=== PATIENT | male | born 1945 | race Caucasian/White ===

== ENCOUNTER 2016-12-28 19:59 | Emergency (ER) | payer MEDICARE, OTHER ==
[~2016-12-28] VITALS: Ht 177.8 cm; Wt 80.7 kg
[~2016-12-28 19:59] MED LIST: ANTACID1 CT2 PO; AVPAK AZITHROM250 M1 PO; KEFLEX500 MG PO; LEVOFLOXACIN750 M2 PO; MEDROL DOSEPAK4 MG PO; MOTRIN800 MG PO; OMEPRAZOLE D/R20 MG PO; PREDNISONE10 MG PO; PREDNISONE20 M1 PO; PRESERVISION LU1 SGL PO; PROAIR HFA8.5 GM INH; ROBITUSSIN AC 110 ML PO; SPIRIVA18 MCG PO; TAMIFLU 75MG CA75 MG PO; TYLENOL WITH CO1 TA1 PO; VIBRAMYCIN100 MG PO; VICODIN 5/500 505 MG PO
[2016-12-28] MEDS ORDERED: CEPHALEXIN500 M1 PO (21:13)
== END 2016-12-28 21:05 | disposition home or self-care (01) ==
LOC: ED 19:59
DX: S69.92XA Unspecified injury of left wrist, hand and finger(s), initial encounter (principal); Z79.899 Other long term (current) drug therapy; X58.XXXA Exposure to other specified factors, initial encounter; Y93.9 Activity, unspecified; Y92.9 Unspecified place or not applicable; Y99.9 Unspecified external cause status

== ENCOUNTER 2017-06-21 16:14 | Emergency (ER) | payer OTHER ==
[~2017-06-21] VITALS: Ht 177.8 cm; Wt 81.6 kg
[~2017-06-21 16:14] MED LIST changes: +CEPHALEXIN500 M1 PO
[2017-06-21] MEDS ORDERED: KEFLEX500 M1 PO (16:29)
== END 2017-06-21 18:37 | disposition home or self-care (01) ==
LOC: ED 16:14
DX: S60.453A Superficial foreign body of left middle finger, initial encounter (principal); J44.9 Chronic obstructive pulmonary disease, unspecified; K21.9 Gastro-esophageal reflux disease without esophagitis; I44.7 Left bundle-branch block, unspecified; Z85.118 Personal history of other malignant neoplasm of bronchus and lung; Z90.89 Acquired absence of other organs; Z98.890 Other specified postprocedural states; Z87.891 Personal history of nicotine dependence; Z98.42 Cataract extraction status, left eye; Z98.41 Cataract extraction status, right eye; Z79.899 Other long term (current) drug therapy; W22.8XXA Striking against or struck by other objects, initial encounter; Y93.89 Activity, other specified; Y92.89 Other specified places as the place of occurrence of the external cause; Y99.9 Unspecified external cause status

== ENCOUNTER 2018-01-03 11:28 | Emergency (ER) | payer MEDICARE, OTHER ==
[~2018-01-03] VITALS: Ht 175.2 cm; Wt 86.2 kg
[~2018-01-03 11:28] MED LIST changes: +KEFLEX500 M1 PO
[2018-01-03] MEDS ORDERED: ASPIRIN CHEWABL81 MG PO (11:35)
[2018-01-03 12:33] LABS: BASO % 0.4 % (0.0-1.0); EOS # 0.1 10*3/uL (0.0-0.4); EOS % 1.2 % (1.0-4.0); HEMATOCRIT 38.9 % (42.0-52.0); HEMOGLOBIN 13.2 g/dl (14.0-18.0); LYMPH # 1.8 10*3/uL (1.3-4.4); LYMPH % 17.1 % (27.0-41.0); MEAN CELL VOLUME 95.8 fl (80.0-94.0); MEAN CORPUSCULAR HGB 32.5 pg (27.0-31.0); MEAN CORPUSCULAR HGB CONC 33.9 g/dl (33.0-37.0); MEAN PLATELET VOLUME 10.8 fl (9.6-12.3); MONO % 9.5 % (3.0-9.0); NEUT # 7.5 10*3/uL (2.3-7.9); NEUT % 71.3 % (47.0-73.0); PLATELET COUNT AUTOMATED 189 10*3/uL (130-400); RED BLOOD COUNT 4.06 10*6/uL (4.50-5.90); RED CELL DISTRI WIDTH 12.9 % (0-14.5); WHITE BLOOD COUNT 10.5 10*3/uL (4.8-10.8)
[2018-01-03 12:42] LABS: ACT PARTIAL THROMBO TIME 20.8 SECONDS (20.8-31.5)
[2018-01-03 12:52] LABS: ALBUMIN 3.5 gm/dl (3.1-4.5); ALKALINE PHOSPHATASE 56 U/L (45-117); BUN 14 mg/dl (7-24); CHLORIDE 100 mmol/L (98-107); CREATININE 0.82 mg/dL (0.70-1.30); LIPASE 120 U/L (73-393); SGOT/AST 15 IU/L (3-35); SGPT/ALT 22 U/L (12-78); SODIUM 135 mmol/L (136-145); TOTAL PROTEIN 6.7 gm/dL (6.4-8.2)
[2018-01-03 12:53] LABS: TROPONIN I < 0.015 ng/ml (<0.045)
[2018-01-03] MEDS ORDERED: DOXYCYCLINE100 M3 PO (14:07)
[2018-01-03] MEDS ORDERED: PROAIR HFA8.5 GM INH (14:07)
== END 2018-01-03 14:11 | disposition home or self-care (01) ==
LOC: ED 11:28
PROVIDERS: Nurse Practitioner Family
DX: J44.9 Chronic obstructive pulmonary disease, unspecified (principal); J20.9 Acute bronchitis, unspecified; F17.200 Nicotine dependence, unspecified, uncomplicated; K21.9 Gastro-esophageal reflux disease without esophagitis; Z90.89 Acquired absence of other organs; Z98.890 Other specified postprocedural states; Z85.118 Personal history of other malignant neoplasm of bronchus and lung; Z79.82 Long term (current) use of aspirin; Z79.899 Other long term (current) drug therapy

== ENCOUNTER 2018-10-19 15:19 | Emergency (ER) | payer OTHER ==
[~2018-10-19] VITALS: Ht 175.2 cm; Wt 83.9 kg
[~2018-10-19 15:19] MED LIST changes: +ASPIRIN CHEWABL81 MG PO; +DOXYCYCLINE100 M3 PO
[2018-10-19] MEDS ORDERED: CEPHALEXIN500 M1 PO (15:51)
== END 2018-10-19 17:50 | disposition home or self-care (01) ==
LOC: ED 15:19
DX: S51.012A Laceration without foreign body of left elbow, initial encounter (principal); Z87.891 Personal history of nicotine dependence; Z79.899 Other long term (current) drug therapy; Z79.82 Long term (current) use of aspirin; W00.0XXA Fall on same level due to ice and snow, initial encounter; Y93.89 Activity, other specified; Y92.89 Other specified places as the place of occurrence of the external cause; Y99.8 Other external cause status

== ENCOUNTER 2020-04-21 18:09 | Emergency (ER) | payer OTHER ==
[~2020-04-21] VITALS: Ht 175.2 cm; Wt 86.2 kg
[2020-04-21 18:58] LABS: BASO # 0.1 10*3/uL (0.0-0.1); BASO % 0.6 % (0.0-1.0); EOS # 0.1 10*3/uL (0.0-0.4); EOS % 1.7 % (1.0-4.0); HEMATOCRIT 34.6 % (42.0-52.0); LYMPH # 1.7 10*3/uL (1.3-4.4); LYMPH % 20.5 % (27.0-41.0); MEAN CELL VOLUME 95.3 fl (80.0-94.0); MEAN CORPUSCULAR HGB 32.5 pg (27.0-31.0); MEAN CORPUSCULAR HGB CONC 34.1 g/dl (33.0-37.0); MEAN PLATELET VOLUME 9.8 fl (9.6-12.3); MONO # 0.8 10*3/uL (0.1-1.0); MONO % 10.1 % (3.0-9.0); NEUT # 5.5 10*3/uL (2.3-7.9); NEUT % 66.6 % (47.0-73.0); PLATELET COUNT AUTOMATED 221 10*3/uL (130-400); RED BLOOD COUNT 3.63 10*6/uL (4.50-5.90); RED CELL DISTRI WIDTH 11.9 % (0-14.5); WHITE BLOOD COUNT 8.3 10*3/uL (4.8-10.8)
[2020-04-21 19:10] LABS: ACT PARTIAL THROMBO TIME 26.5 SECONDS (20.0-32.1); INTERNATIONAL NORM RATIO 0.9 (2.0-3.5)
[2020-04-21 19:20] LABS: ALBUMIN 3.4 gm/dl (3.1-4.5); ALKALINE PHOSPHATASE 61 U/L (45-117); BUN 18 mg/dl (7-24); CHLORIDE 96 mmol/L (98-107); CREATININE 1.05 mg/dL (0.70-1.30); POTASSIUM 4.6 mmol/L (3.5-5.1); SGOT/AST 18 IU/L (3-35); SGPT/ALT 24 U/L (12-78); SODIUM 127 mmol/L (136-145); TOTAL PROTEIN 6.6 gm/dL (6.4-8.2)
[2020-04-21] MEDS ORDERED: MOBIC7.5 MG PO (20:43)
== END 2020-04-21 20:58 | disposition home or self-care (01) ==
LOC: ED 18:09
PROVIDERS: Physician Assistant
DX: M17.12 Unilateral primary osteoarthritis, left knee (principal); Z79.899 Other long term (current) drug therapy; Z79.82 Long term (current) use of aspirin

== ENCOUNTER 2021-08-14 18:46 | Inpatient (IN) | payer OTHER ==
[~2021-08-14] VITALS: Ht 175.2 cm; Wt 88.9 kg
[~2021-08-14 18:46] MED LIST changes: +MOBIC7.5 MG PO
[2021-08-14 19:16] LABS: HEMATOCRIT 37.1 % (42.0-52.0); MEAN CELL VOLUME 98.1 fl (80.0-94.0); MEAN CORPUSCULAR HGB 33.1 pg (27.0-31.0); MEAN CORPUSCULAR HGB CONC 33.7 g/dl (33.0-37.0); MEAN PLATELET VOLUME 9.2 fl (9.6-12.3); PLATELET COUNT AUTOMATED 308 10*3/uL (130-400); RED BLOOD COUNT 3.78 10*6/uL (4.50-5.90); RED CELL DISTRI WIDTH 13.2 % (0-14.5); WHITE BLOOD COUNT 16.8 10*3/uL (4.8-10.8)
[2021-08-14 19:27] LABS: ACT PARTIAL THROMBO TIME 30.2 SECONDS (20.0-32.1); INTERNATIONAL NORM RATIO 1.1 (2.0-3.5)
[2021-08-14 19:31] LABS: ALKALINE PHOSPHATASE 96 U/L (45-117); BUN 17 mg/dl (7-24); CHLORIDE 96 mmol/L (98-107); CREATININE 0.94 mg/dL (0.70-1.30); POTASSIUM 4.6 mmol/L (3.5-5.1); SGOT/AST 24 IU/L (3-35); SGPT/ALT 43 U/L (12-78); SODIUM 132 mmol/L (136-145); TOTAL PROTEIN 7.5 gm/dL (6.4-8.2)
[2021-08-14 19:37] LABS: ATYPICAL LYMPHS 2 % (0-0); BURR CELLS FEW; PLATELET SUFFICIENCY NORMAL (NORMAL); TOTAL CELLS COUNTED 100 #CELLS
[2021-08-14 19:58] LABS: ALBUMIN 2.4 gm/dl (3.1-4.5)
[2021-08-14 20:47] VITALS: BP 128/62
[2021-08-14 22:46] VITALS: BP 119/63
[2021-08-15] VITALS (10 sets, daily range): BP systolic 121–141; BP diastolic 70–84
[2021-08-15] MEDS ORDERED: CARVEDILOL6.25 MG PO (03:30)
[2021-08-15] MEDS ORDERED: DIOVAN40 MG PO (03:30)
[2021-08-15] MEDS ORDERED: ALDACTONE25 M1 PO (03:30)
[2021-08-15 04:08] LABS: BASO % 0.3 % (0.0-1.0); EOS # 0.1 10*3/uL (0.0-0.4); EOS % 0.5 % (1.0-4.0); HEMATOCRIT 33.7 % (42.0-52.0); LYMPH # 1.5 10*3/uL (1.3-4.4); LYMPH % 12.1 % (27.0-41.0); MEAN CELL VOLUME 98.8 fl (80.0-94.0); MEAN CORPUSCULAR HGB 33.1 pg (27.0-31.0); MEAN CORPUSCULAR HGB CONC 33.5 g/dl (33.0-37.0); MEAN PLATELET VOLUME 9.5 fl (9.6-12.3); MONO # 1.2 10*3/uL (0.1-1.0); MONO % 9.9 % (3.0-9.0); NEUT # 9.3 10*3/uL (2.3-7.9); NEUT % 74.9 % (47.0-73.0); PLATELET COUNT AUTOMATED 292 10*3/uL (130-400); RED BLOOD COUNT 3.41 10*6/uL (4.50-5.90); RED CELL DISTRI WIDTH 13.2 % (0-14.5); WHITE BLOOD COUNT 12.4 10*3/uL (4.8-10.8)
[2021-08-15 04:24] LABS: BUN 14 mg/dl (7-24); CHLORIDE 98 mmol/L (98-107); SODIUM 132 mmol/L (136-145)
[2021-08-15 04:26] LABS: CHOLESTEROL 79 mg/dL (<200); LDL CHOLESTEROL 29 mg/dL (9-159); TRIGLYCERIDES 59 mg/dl (<150)
[2021-08-15 09:04] LABS: VITAMIN D, 25-HYDROXY 27.4 ng/mL (30-100)
[2021-08-16 04:50] VITALS: BP 128/84
[2021-08-16 06:18] LABS: BASO % 0.3 % (0.0-1.0); EOS # 0.1 10*3/uL (0.0-0.4); EOS % 0.9 % (1.0-4.0); HEMATOCRIT 31.9 % (42.0-52.0); LYMPH # 1.2 10*3/uL (1.3-4.4); LYMPH % 11.3 % (27.0-41.0); MEAN CELL VOLUME 98.5 fl (80.0-94.0); MEAN CORPUSCULAR HGB 32.7 pg (27.0-31.0); MEAN CORPUSCULAR HGB CONC 33.2 g/dl (33.0-37.0); MEAN PLATELET VOLUME 9.4 fl (9.6-12.3); MONO # 0.9 10*3/uL (0.1-1.0); MONO % 8.6 % (3.0-9.0); NEUT # 8.4 10*3/uL (2.3-7.9); PLATELET COUNT AUTOMATED 301 10*3/uL (130-400); RED BLOOD COUNT 3.24 10*6/uL (4.50-5.90); RED CELL DISTRI WIDTH 13.2 % (0-14.5); WHITE BLOOD COUNT 10.9 10*3/uL (4.8-10.8)
[2021-08-16 06:56] LABS: ALBUMIN 1.8 gm/dl (3.1-4.5); ALKALINE PHOSPHATASE 80 U/L (45-117); BUN 11 mg/dl (7-24); CHLORIDE 97 mmol/L (98-107); SGOT/AST 51 IU/L (3-35); SGPT/ALT 63 U/L (12-78); SODIUM 133 mmol/L (136-145); TOTAL PROTEIN 6.4 gm/dL (6.4-8.2)
[2021-08-16 08:24] VITALS: BP 120/77
[2021-08-16 13:00] VITALS: BP 118/86
[2021-08-16 16:00] VITALS: BP 119/72
[2021-08-16 20:00] VITALS: BP 150/70
[2021-08-17] VITALS: BP 136/69
[2021-08-17 06:32] LABS: BASO % 0.4 % (0.0-1.0); EOS # 0.1 10*3/uL (0.0-0.4); EOS % 1.2 % (1.0-4.0); HEMATOCRIT 31.6 % (42.0-52.0); LYMPH # 1.2 10*3/uL (1.3-4.4); LYMPH % 10.2 % (27.0-41.0); MEAN CORPUSCULAR HGB 33.2 pg (27.0-31.0); MEAN CORPUSCULAR HGB CONC 33.2 g/dl (33.0-37.0); MEAN PLATELET VOLUME 9.3 fl (9.6-12.3); MONO # 0.9 10*3/uL (0.1-1.0); NEUT # 8.9 10*3/uL (2.3-7.9); NEUT % 78.3 % (47.0-73.0); PLATELET COUNT AUTOMATED 317 10*3/uL (130-400); RED BLOOD COUNT 3.16 10*6/uL (4.50-5.90); WHITE BLOOD COUNT 11.3 10*3/uL (4.8-10.8)
[2021-08-17 06:52] LABS: ALBUMIN 1.8 gm/dl (3.1-4.5); BUN 10 mg/dl (7-24); CHLORIDE 97 mmol/L (98-107); POTASSIUM 4.2 mmol/L (3.5-5.1); SODIUM 132 mmol/L (136-145)
[2021-08-17 06:55] LABS: ALKALINE PHOSPHATASE 76 U/L (45-117); CREATININE 0.53 mg/dL (0.70-1.30); SGOT/AST 60 IU/L (3-35); SGPT/ALT 97 U/L (12-78); TOTAL PROTEIN 6.3 gm/dL (6.4-8.2)
[2021-08-17 08:00] VITALS: BP 105/61
[2021-08-17 12:00] VITALS: BP 112/64
[2021-08-17 16:00] VITALS: BP 98/62
[2021-08-17 20:00] VITALS: BP 131/75
[2021-08-18] VITALS: BP 133/60
[2021-08-18 06:08] LABS: BASO % 0.3 % (0.0-1.0); EOS # 0.1 10*3/uL (0.0-0.4); HEMATOCRIT 32.8 % (42.0-52.0); LYMPH # 1.3 10*3/uL (1.3-4.4); LYMPH % 11.1 % (27.0-41.0); MEAN CELL VOLUME 98.8 fl (80.0-94.0); MEAN CORPUSCULAR HGB 32.5 pg (27.0-31.0); MEAN CORPUSCULAR HGB CONC 32.9 g/dl (33.0-37.0); MEAN PLATELET VOLUME 9.1 fl (9.6-12.3); MONO # 0.9 10*3/uL (0.1-1.0); MONO % 7.5 % (3.0-9.0); NEUT # 9.2 10*3/uL (2.3-7.9); NEUT % 77.6 % (47.0-73.0); PLATELET COUNT AUTOMATED 363 10*3/uL (130-400); RED BLOOD COUNT 3.32 10*6/uL (4.50-5.90); WHITE BLOOD COUNT 11.9 10*3/uL (4.8-10.8)
[2021-08-18 06:24] LABS: ALBUMIN 1.9 gm/dl (3.1-4.5); BUN 10 mg/dl (7-24); CHLORIDE 95 mmol/L (98-107); CREATININE 0.54 mg/dL (0.70-1.30); POTASSIUM 4.3 mmol/L (3.5-5.1); SGOT/AST 38 IU/L (3-35); SGPT/ALT 91 U/L (12-78); SODIUM 131 mmol/L (136-145); TOTAL PROTEIN 6.7 gm/dL (6.4-8.2)
[2021-08-18 06:25] LABS: ALKALINE PHOSPHATASE 75 U/L (45-117)
[2021-08-18 08:00] VITALS: BP 105/71
[2021-08-18 12:00] VITALS: BP 155/72
[2021-08-18 16:00] VITALS: BP 125/79
[2021-08-18 20:00] VITALS: BP 130/78
[2021-08-19] VITALS: BP 121/72
[2021-08-19 06:33] LABS: HEMATOCRIT 32.4 % (42.0-52.0); MEAN CELL VOLUME 99.4 fl (80.0-94.0); MEAN CORPUSCULAR HGB 32.5 pg (27.0-31.0); MEAN CORPUSCULAR HGB CONC 32.7 g/dl (33.0-37.0); MEAN PLATELET VOLUME 9.1 fl (9.6-12.3); PLATELET COUNT AUTOMATED 385 10*3/uL (130-400); RED BLOOD COUNT 3.26 10*6/uL (4.50-5.90); RED CELL DISTRI WIDTH 13.1 % (0-14.5); WHITE BLOOD COUNT 12.1 10*3/uL (4.8-10.8)
[2021-08-19 06:47] LABS: ALBUMIN 1.9 gm/dl (3.1-4.5); ALKALINE PHOSPHATASE 66 U/L (45-117); BUN 9 mg/dl (7-24); CHLORIDE 96 mmol/L (98-107); CREATININE 0.64 mg/dL (0.70-1.30); POTASSIUM 4.2 mmol/L (3.5-5.1); SGOT/AST 26 IU/L (3-35); SGPT/ALT 78 U/L (12-78); SODIUM 133 mmol/L (136-145); TOTAL PROTEIN 6.4 gm/dL (6.4-8.2)
[2021-08-19 08:00] VITALS: BP 128/68
[2021-08-19 08:00] LABS: BURR CELLS FEW; PLATELET SUFFICIENCY NORMAL (NORMAL); SCHISTOCYTES FEW; TOTAL CELLS COUNTED 100 #CELLS
[2021-08-19 12:00] VITALS: BP 130/28; BP 130/58
[2021-08-19] MEDS ORDERED: OMNICEF300 MG PO (13:16)
[2021-08-19] MEDS ORDERED: ZITHROMAX250 MG PO (13:16)
== END 2021-08-19 20:48 | disposition home or self-care (01) | DRG 871 ==
LOC: ED 18:46 → EDHOLD 21:14 → 4E 08-16 15:55
PROVIDERS: Emergency Medicine; Hospitalist; Internal Medicine; ADMIT Internal Medicine; ATTEND Internal Medicine
DX: A41.9 Sepsis, unspecified organism (principal); J18.9 Pneumonia, unspecified organism; E43 Unspecified severe protein-calorie malnutrition; J96.01 Acute respiratory failure with hypoxia; E87.1 Hypo-osmolality and hyponatremia; J44.0 Chronic obstructive pulmonary disease with (acute) lower respiratory infection; I44.7 Left bundle-branch block, unspecified; D53.9 Nutritional anemia, unspecified; R74.01 Elevation of levels of liver transaminase levels; E87.8 Other disorders of electrolyte and fluid balance, not elsewhere classified; E55.9 Vitamin D deficiency, unspecified; K21.9 Gastro-esophageal reflux disease without esophagitis; Z95.810 Presence of automatic (implantable) cardiac defibrillator; Z85.118 Personal history of other malignant neoplasm of bronchus and lung; Z98.42 Cataract extraction status, left eye; Z98.41 Cataract extraction status, right eye; Z80.1 Family history of malignant neoplasm of trachea, bronchus and lung; Z82.5 Family history of asthma and other chronic lower respiratory diseases; Z79.82 Long term (current) use of aspirin; Z79.51 Long term (current) use of inhaled steroids

== ENCOUNTER 2022-09-23 16:41 | Emergency (ER) | payer OTHER ==
[~2022-09-23] VITALS: Ht 175.2 cm; Wt 80.3 kg
[~2022-09-23 16:41] MED LIST changes: +ALDACTONE25 M1 PO; +CARVEDILOL6.25 MG PO; +DIOVAN40 MG PO; +OMNICEF300 MG PO; +ZITHROMAX250 MG PO
[2022-09-23 17:20] LABS: BASO # 0.1 10*3/uL (0.0-0.1); BASO % 0.6 % (0.0-1.0); EOS # 0.8 10*3/uL (0.0-0.4); HEMATOCRIT 39.1 % (42.0-52.0); LYMPH # 1.5 10*3/uL (1.3-4.4); LYMPH % 13.5 % (27.0-41.0); MEAN CELL VOLUME 98.5 fl (80.0-94.0); MEAN CORPUSCULAR HGB 32.5 pg (27.0-31.0); MEAN PLATELET VOLUME 9.6 fl (9.6-12.3); MONO # 0.9 10*3/uL (0.1-1.0); MONO % 7.9 % (3.0-9.0); NEUT # 8.1 10*3/uL (2.3-7.9); NEUT % 70.7 % (47.0-73.0); PLATELET COUNT AUTOMATED 191 10*3/uL (130-400); RED BLOOD COUNT 3.97 10*6/uL (4.50-5.90); RED CELL DISTRI WIDTH 12.8 % (0-14.5); WHITE BLOOD COUNT 11.4 10*3/uL (4.8-10.8)
[2022-09-23 17:36] LABS: ALKALINE PHOSPHATASE 72 U/L (46-116); BUN 11 mg/dl (9-23); CHLORIDE 97 mmol/L (98-107); POTASSIUM 4.3 mmol/L (3.4-5.1); SGPT/ALT 17 U/L (10-49); TOTAL PROTEIN 7.3 gm/dL (6.0-8.0)
[2022-09-23] MEDS ORDERED: VIBRA-TAB100 MG PO (17:48)
[2022-09-23] MEDS ORDERED: PREDNISONE10 MG PO (17:48)
[2022-09-23] MEDS ORDERED: PROVENTIL HFA6.7 GM PO (17:48)
== END 2022-09-23 19:43 | disposition home or self-care (01) ==
LOC: ED 16:41
PROVIDERS: Student in an Organized Health Care Education/Training Program
DX: J44.1 Chronic obstructive pulmonary disease with (acute) exacerbation (principal); J18.9 Pneumonia, unspecified organism; Z79.899 Other long term (current) drug therapy; Z79.82 Long term (current) use of aspirin; Z98.890 Other specified postprocedural states; Z87.891 Personal history of nicotine dependence

== ENCOUNTER 2023-05-21 15:45 | Inpatient (IN) | payer OTHER ==
[~2023-05-21] VITALS: Ht 172.7 cm; Wt 81.6 kg
[~2023-05-21 15:45] MED LIST changes: -CARVEDILOL6.25 MG PO; +COREG12.5 M1 PO; -DIOVAN40 MG PO; +DIOVAN80 M1 PO; +DULCOLAX STOOL100 M1 PO; +LIPITOR40 MG PO; -OMEPRAZOLE D/R20 MG PO; +OMEPRAZOLE40 MG PO; +PREDNISONE50 MG PO; +PROVENTIL HFA6.7 GM PO; +SPIRIVA -- 3018 MCG INH; +VIBRA-TAB100 MG PO
[2023-05-21 16:14] VITALS: BP 108/57
[2023-05-21 16:21] LABS: BASO # 0.1 10*3/uL (0.0-0.1); BASO % 0.3 % (0.0-1.0); EOS # 0.1 10*3/uL (0.0-0.4); EOS % 0.4 % (1.0-4.0); HEMATOCRIT 38.4 % (42.0-52.0); LYMPH # 1.1 10*3/uL (1.3-4.4); MEAN CELL VOLUME 99.2 fl (80.0-94.0); MEAN CORPUSCULAR HGB 32.6 pg (27.0-31.0); MEAN CORPUSCULAR HGB CONC 32.8 g/dl (33.0-37.0); MEAN PLATELET VOLUME 10.1 fl (9.6-12.3); MONO # 1.2 10*3/uL (0.1-1.0); MONO % 6.8 % (3.0-9.0); NEUT # 15.4 10*3/uL (2.3-7.9); NEUT % 85.9 % (47.0-73.0); PLATELET COUNT AUTOMATED 193 10*3/uL (130-400); RED BLOOD COUNT 3.87 10*6/uL (4.50-5.90); RED CELL DISTRI WIDTH 12.8 % (0-14.5); WHITE BLOOD COUNT 17.9 10*3/uL (4.8-10.8)
[2023-05-21 16:32] LABS: ACT PARTIAL THROMBO TIME 26.9 SECONDS (20.0-32.1)
[2023-05-21 16:45] LABS: ALKALINE PHOSPHATASE 66 U/L (46-116); BUN 16 mg/dl (9-23); CHLORIDE 100 mmol/L (98-107); LIPASE 29 U/L (12-53); POTASSIUM 4.2 mmol/L (3.4-5.1); SGPT/ALT 14 U/L (10-49); TOTAL PROTEIN 6.9 gm/dL (6.0-8.0)
[2023-05-21 17:34] VITALS: BP 106/62
[2023-05-21 18:22] VITALS: BP 100/57
[2023-05-21 20:37] VITALS: BP 90/48
[2023-05-21 23:28] VITALS: BP 121/61
[2023-05-22] VITALS (10 sets, daily range): BP systolic 103–121; BP diastolic 49–76
[2023-05-22 08:07] LABS: HEMATOCRIT 36.5 % (42.0-52.0); MEAN CELL VOLUME 98.9 fl (80.0-94.0); MEAN CORPUSCULAR HGB 32.8 pg (27.0-31.0); MEAN CORPUSCULAR HGB CONC 33.2 g/dl (33.0-37.0); MEAN PLATELET VOLUME 10.6 fl (9.6-12.3); PLATELET COUNT AUTOMATED 187 10*3/uL (130-400); RED BLOOD COUNT 3.69 10*6/uL (4.50-5.90); RED CELL DISTRI WIDTH 12.7 % (0-14.5); WHITE BLOOD COUNT 11.9 10*3/uL (4.8-10.8)
[2023-05-22 08:12] LABS: MANUAL DIFF REFLEX YES
[2023-05-22 08:41] LABS: BUN 12 mg/dl (9-23); CHLORIDE 106 mmol/L (98-107); FREE T4 1.19 ng/dl (0.89-1.76)
[2023-05-22 08:50] LABS: TOTAL CELLS COUNTED 100 #CELLS
[2023-05-22 08:51] LABS: BURR CELLS MODERATE; PLATELET SUFFICIENCY NORMAL (NORMAL); POLYCHROMASIA SLIGHT
[2023-05-23 08:14] VITALS: BP 119/47
[2023-05-23 08:16] LABS: HEMATOCRIT 35.3 % (42.0-52.0); MEAN CELL VOLUME 100.3 fl (80.0-94.0); MEAN CORPUSCULAR HGB CONC 32.9 g/dl (33.0-37.0); MEAN PLATELET VOLUME 10.9 fl (9.6-12.3); PLATELET COUNT AUTOMATED 201 10*3/uL (130-400); RED BLOOD COUNT 3.52 10*6/uL (4.50-5.90); RED CELL DISTRI WIDTH 12.8 % (0-14.5); WHITE BLOOD COUNT 15.2 10*3/uL (4.8-10.8)
[2023-05-23 08:18] LABS: MANUAL DIFF REFLEX YES
[2023-05-23 08:42] LABS: ALKALINE PHOSPHATASE 57 U/L (46-116); BUN 14 mg/dl (9-23); CHLORIDE 104 mmol/L (98-107); POTASSIUM 4.3 mmol/L (3.4-5.1); SGPT/ALT 14 U/L (10-49); TOTAL PROTEIN 6.3 gm/dL (6.0-8.0)
[2023-05-23 09:27] LABS: BURR CELLS FEW; PLATELET SUFFICIENCY NORMAL (NORMAL); POLYCHROMASIA SLIGHT; TOTAL CELLS COUNTED 100 #CELLS
[2023-05-23] MEDS ORDERED: PREDNISONE10 MG PO (11:36)
[2023-05-23] MEDS ORDERED: AUGMENTIN 500500 M1 PO (11:36)
[2023-05-23] MEDS ORDERED: VITAMIN D350 MC2 PO (11:36)
[2023-05-23] MEDS ORDERED: ZITHROMAX250 MG PO (11:36)
== END 2023-05-23 11:30 | disposition home or self-care (01) | DRG 871 ==
LOC: ED 15:45 → EDHOLD 18:32
PROVIDERS: Emergency Medicine; Student in an Organized Health Care Education/Training Program; ADMIT Internal Medicine; ATTEND Internal Medicine
DX: A41.9 Sepsis, unspecified organism (principal); J18.9 Pneumonia, unspecified organism; N17.0 Acute kidney failure with tubular necrosis; K72.00 Acute and subacute hepatic failure without coma; J44.1 Chronic obstructive pulmonary disease with (acute) exacerbation; J44.0 Chronic obstructive pulmonary disease with (acute) lower respiratory infection; R65.20 Severe sepsis without septic shock; I10 Essential (primary) hypertension; E78.5 Hyperlipidemia, unspecified; K21.9 Gastro-esophageal reflux disease without esophagitis; E78.00 Pure hypercholesterolemia, unspecified; D72.829 Elevated white blood cell count, unspecified; D64.9 Anemia, unspecified; R73.9 Hyperglycemia, unspecified; E55.9 Vitamin D deficiency, unspecified; Z98.42 Cataract extraction status, left eye; Z98.41 Cataract extraction status, right eye; Z87.891 Personal history of nicotine dependence; Z80.1 Family history of malignant neoplasm of trachea, bronchus and lung; Z83.6 Family history of other diseases of the respiratory system; Z85.118 Personal history of other malignant neoplasm of bronchus and lung

== ENCOUNTER 2023-11-12 10:46 | Inpatient (IN) | payer OTHER ==
[~2023-11-12] VITALS: Ht 175.3 cm; Wt 80.7 kg
[~2023-11-12 10:46] MED LIST changes: +AUGMENTIN 500500 M1 PO; +VITAMIN D350 MC2 PO
[2023-11-12 10:55] VITALS: BP 126/66
[2023-11-12] MEDS ORDERED: Albuterol Sulf/Ipratropium 3 ML VIAL NEB ONE (11:15)
[2023-11-12 11:27] LABS: BASO # 0.1 10*3/uL (0.0-0.1); BASO % 0.5 % (0.0-1.0); EOS # 0.4 10*3/uL (0.0-0.4); EOS % 3.2 % (1.0-4.0); HEMATOCRIT 38.9 % (42.0-52.0); LYMPH # 1.5 10*3/uL (1.3-4.4); LYMPH % 11.1 % (27.0-41.0); MEAN CELL VOLUME 98.2 fl (80.0-94.0); MEAN CORPUSCULAR HGB 31.6 pg (27.0-31.0); MEAN CORPUSCULAR HGB CONC 32.1 g/dl (33.0-37.0); MEAN PLATELET VOLUME 9.8 fl (9.6-12.3); MONO # 0.9 10*3/uL (0.1-1.0); NEUT # 10.3 10*3/uL (2.3-7.9); NEUT % 77.7 % (47.0-73.0); PLATELET COUNT AUTOMATED 279 10*3/uL (130-400); RED BLOOD COUNT 3.96 10*6/uL (4.50-5.90); RED CELL DISTRI WIDTH 12.6 % (0-14.5); WHITE BLOOD COUNT 13.3 10*3/uL (4.8-10.8)
[2023-11-12 11:37] LABS: ACT PARTIAL THROMBO TIME 26.8 SECONDS (20.0-32.1)
[2023-11-12 11:48] LABS: ALKALINE PHOSPHATASE 62 U/L (46-116); BUN 10 mg/dl (9-23); CHLORIDE 99 mmol/L (98-107); LIPASE 31 U/L (12-53); POTASSIUM 3.9 mmol/L (3.4-5.1); SGPT/ALT 11 U/L (5-49); TOTAL PROTEIN 6.6 gm/dL (6.0-8.0)
[2023-11-12 12:00] VITALS: BP 112/65
[2023-11-12] MEDS ORDERED: methylPREDNISolone sod succ 125 MG VIAL IV ONE (12:35)
[2023-11-12] MEDS ORDERED: Ceftriaxone Sodium 1 GM/10 ML SYR IV ONE (12:40)
[2023-11-12] MEDS ORDERED: SODIUM CHLORIDE 0.9% 1,000 ML IV SCH (12:40)
[2023-11-12] MEDS ORDERED: AZITHROMYCIN 250 ML IV ONE (12:40)
[2023-11-12 13:30] VITALS: BP 112/65
[2023-11-12 14:26] VITALS: BP 132/98
[2023-11-12] MEDS ORDERED: FUROSEMIDE 40 MG/4 ML VIAL IV ONE (14:35)
[2023-11-12] MEDS ORDERED: LORazepam 0.5 MG TAB PO ONE (14:50)
[2023-11-12] MEDS ORDERED: Acetaminophen/Hydrocodone 5 MG/325 MG TABLET PO PRN (15:55)
[2023-11-12] MEDS ORDERED: BISACODYL 5 MG TAB PO PRN (15:55)
[2023-11-12] MEDS ORDERED: Ondansetron Hydrochloride 4 MG/2 ML VIAL IV PRN (15:55)
[2023-11-12] MEDS ORDERED: ACETAMINOPHEN 325 MG TAB PO PRN (15:55)
[2023-11-12] MEDS ORDERED: ACETAMINOPHEN 650 MG SUPP R PRN (15:55)
[2023-11-12] MEDS ORDERED: BISACODYL 10 MG SUPP R PRN (15:55)
[2023-11-12] MEDS ORDERED: Magnesium Hydroxide 30 ML UDC PO PRN (15:55)
[2023-11-12] MEDS ORDERED: Albuterol Sulf/Ipratropium 3 ML VIAL NEB PRN (16:05)
[2023-11-12] MEDS ORDERED: Phosphorus/Potassium 1.45 GM PACKET PO SCH (17:00)
[2023-11-12] MEDS ORDERED: LEVOFLOXACIN 150 ML IV SCH (18:00)
[2023-11-12] MEDS ORDERED: FUROSEMIDE 20 MG/2 ML VIAL IV SCH (18:00)
[2023-11-12] MEDS ORDERED: FUROSEMIDE 40 MG/4 ML VIAL IV SCH (18:00)
[2023-11-12 19:29] VITALS: BP 119/61
[2023-11-12 20:00] VITALS: BP 109/50
[2023-11-12] MEDS ORDERED: methylPREDNISolone sod succ 40 MG VIAL IV SCH (22:00)
[2023-11-12] MEDS ORDERED: TEMAZEPAM 15 MG CAP PO ONE (22:30)
[2023-11-13 05:24] VITALS: BP 108/58
[2023-11-13 05:40] LABS: ALKALINE PHOSPHATASE 58 U/L (46-116); BUN 14 mg/dl (9-23); CHLORIDE 99 mmol/L (98-107); CHOLESTEROL 104 mg/dL (<200); LDL CHOLESTEROL 43 mg/dL (9-159); POTASSIUM 4.3 mmol/L (3.4-5.1); SGPT/ALT 12 U/L (5-49); TOTAL PROTEIN 6.5 gm/dL (6.0-8.0); TRIGLYCERIDES 55 mg/dl (<150)
[2023-11-13 05:57] LABS: BASO % 0.2 % (0.0-1.0); HEMATOCRIT 36.9 % (42.0-52.0); LYMPH # 0.8 10*3/uL (1.3-4.4); LYMPH % 7.7 % (27.0-41.0); MEAN CELL VOLUME 98.7 fl (80.0-94.0); MEAN CORPUSCULAR HGB 31.6 pg (27.0-31.0); MONO # 0.2 10*3/uL (0.1-1.0); MONO % 1.5 % (3.0-9.0); NEUT # 9.6 10*3/uL (2.3-7.9); PLATELET COUNT AUTOMATED 272 10*3/uL (130-400); RED BLOOD COUNT 3.74 10*6/uL (4.50-5.90); RED CELL DISTRI WIDTH 12.5 % (0-14.5); WHITE BLOOD COUNT 10.7 10*3/uL (4.8-10.8)
[2023-11-13 06:38] LABS: ACT PARTIAL THROMBO TIME 28.8 SECONDS (20.0-32.1)
[2023-11-13 06:44] LABS: VITAMIN D, 25-HYDROXY 25.7 ng/mL (30-100)
[2023-11-13 09:34] VITALS: BP 118/62
[2023-11-13] MEDS ORDERED: Enoxaparin Sodium 40 MG/0.4 ML SYR SC SCH (10:00)
[2023-11-13 11:23] VITALS: BP 135/70
[2023-11-13 16:00] VITALS: BP 122/67
[2023-11-13] MEDS ORDERED: TEMAZEPAM 15 MG CAP PO PRN (18:55)
[2023-11-13 20:00] VITALS: BP 149/80
[2023-11-14] VITALS: BP 116/49
[2023-11-14 06:05] LABS: HEMATOCRIT 36.2 % (42.0-52.0); MEAN CELL VOLUME 97.1 fl (80.0-94.0); MEAN CORPUSCULAR HGB 31.4 pg (27.0-31.0); MEAN CORPUSCULAR HGB CONC 32.3 g/dl (33.0-37.0); MEAN PLATELET VOLUME 10.2 fl (9.6-12.3); PLATELET COUNT AUTOMATED 340 10*3/uL (130-400); RED BLOOD COUNT 3.73 10*6/uL (4.50-5.90); RED CELL DISTRI WIDTH 12.5 % (0-14.5); WHITE BLOOD COUNT 18.5 10*3/uL (4.8-10.8)
[2023-11-14 06:13] LABS: MANUAL DIFF REFLEX YES
[2023-11-14 06:19] LABS: BUN 16 mg/dl (9-23); CHLORIDE 96 mmol/L (98-107); POTASSIUM 4.3 mmol/L (3.4-5.1)
[2023-11-14 07:00] LABS: PLATELET SUFFICIENCY NORMAL (NORMAL); TOTAL CELLS COUNTED 100 #CELLS
[2023-11-14 07:01] LABS: BURR CELLS FEW
[2023-11-14 08:00] VITALS: BP 117/53
[2023-11-14] MEDS ORDERED: Cholecalciferol 2,000 UNIT TABLET (50 MCG) PO SCH (10:00)
[2023-11-14 12:00] VITALS: BP 151/70
[2023-11-14] MEDS ORDERED: hydrOXYzine pamoate 25 MG CAP PO ONE (12:30)
[2023-11-14] MEDS ORDERED: hydrOXYzine pamoate 25 MG CAP PO PRN (12:30)
[2023-11-14 16:00] VITALS: BP 148/86
[2023-11-14 20:00] VITALS: BP 137/89
[2023-11-15] VITALS: BP 118/72
[2023-11-15] MEDS ORDERED: Metoprolol Tartrate 25 MG TAB PO ONE (00:55)
[2023-11-15 06:31] LABS: BASO % 0.1 % (0.0-1.0); EOS % 0.1 % (1.0-4.0); HEMATOCRIT 36.6 % (42.0-52.0); LYMPH # 1.8 10*3/uL (1.3-4.4); LYMPH % 12.8 % (27.0-41.0); MEAN CELL VOLUME 96.6 fl (80.0-94.0); MEAN CORPUSCULAR HGB 31.4 pg (27.0-31.0); MEAN CORPUSCULAR HGB CONC 32.5 g/dl (33.0-37.0); MEAN PLATELET VOLUME 9.7 fl (9.6-12.3); MONO % 6.9 % (3.0-9.0); NEUT # 10.9 10*3/uL (2.3-7.9); NEUT % 79.4 % (47.0-73.0); PLATELET COUNT AUTOMATED 321 10*3/uL (130-400); RED BLOOD COUNT 3.79 10*6/uL (4.50-5.90); RED CELL DISTRI WIDTH 12.5 % (0-14.5); WHITE BLOOD COUNT 13.7 10*3/uL (4.8-10.8)
[2023-11-15 07:09] LABS: BUN 16 mg/dl (9-23); CHLORIDE 97 mmol/L (98-107); POTASSIUM 4.3 mmol/L (3.4-5.1)
[2023-11-15 08:00] VITALS: BP 121/66
[2023-11-15] MEDS ORDERED: FOLIC ACID 0.4 MG TAB PO SCH (10:00)
[2023-11-15 12:00] VITALS: BP 135/60
[2023-11-15 16:00] VITALS: BP 131/52
[2023-11-15] MEDS ORDERED: TUBERCULIN INTRADERM ONE (18:20)
[2023-11-15 20:00] VITALS: BP 118/68
[2023-11-16] VITALS: BP 101/70
[2023-11-16] MEDS ORDERED: OMEPRAZOLE 20 MG CAP PO SCH (06:00)
[2023-11-16 06:38] LABS: BASO % 0.1 % (0.0-1.0); EOS # 0.1 10*3/uL (0.0-0.4); EOS % 1.1 % (1.0-4.0); HEMATOCRIT 37.6 % (42.0-52.0); LYMPH # 1.1 10*3/uL (1.3-4.4); LYMPH % 10.2 % (27.0-41.0); MEAN CELL VOLUME 95.4 fl (80.0-94.0); MEAN CORPUSCULAR HGB 31.5 pg (27.0-31.0); MONO # 0.5 10*3/uL (0.1-1.0); MONO % 4.2 % (3.0-9.0); NEUT # 9.3 10*3/uL (2.3-7.9); NEUT % 83.5 % (47.0-73.0); PLATELET COUNT AUTOMATED 344 10*3/uL (130-400); RED BLOOD COUNT 3.94 10*6/uL (4.50-5.90); RED CELL DISTRI WIDTH 12.4 % (0-14.5); WHITE BLOOD COUNT 11.1 10*3/uL (4.8-10.8)
[2023-11-16 06:56] LABS: BUN 17 mg/dl (9-23); CHLORIDE 96 mmol/L (98-107); POTASSIUM 4.4 mmol/L (3.4-5.1)
[2023-11-16 08:00] VITALS: BP 141/78
[2023-11-16 12:00] VITALS: BP 160/80
[2023-11-16 16:00] VITALS: BP 149/85
[2023-11-16 20:09] VITALS: BP 154/70
[2023-11-17] VITALS: BP 124/77
[2023-11-17] MEDS ORDERED: IPRATROPIUM BROMIDE 0.5 MG/2.5 ML AMP NEB SCH (06:30)
[2023-11-17 06:45] LABS: BASO % 0.1 % (0.0-1.0); EOS # 0.1 10*3/uL (0.0-0.4); EOS % 0.5 % (1.0-4.0); HEMATOCRIT 40.4 % (42.0-52.0); LYMPH % 8.2 % (27.0-41.0); MEAN CELL VOLUME 94.6 fl (80.0-94.0); MEAN CORPUSCULAR HGB 31.6 pg (27.0-31.0); MEAN CORPUSCULAR HGB CONC 33.4 g/dl (33.0-37.0); MONO # 0.5 10*3/uL (0.1-1.0); MONO % 4.5 % (3.0-9.0); NEUT # 10.2 10*3/uL (2.3-7.9); NEUT % 85.7 % (47.0-73.0); PLATELET COUNT AUTOMATED 363 10*3/uL (130-400); RED BLOOD COUNT 4.27 10*6/uL (4.50-5.90); RED CELL DISTRI WIDTH 12.5 % (0-14.5); WHITE BLOOD COUNT 11.9 10*3/uL (4.8-10.8)
[2023-11-17 06:49] LABS: BUN 16 mg/dl (9-23); CHLORIDE 97 mmol/L (98-107); POTASSIUM 4.6 mmol/L (3.4-5.1)
[2023-11-17 08:00] VITALS: BP 121/102
[2023-11-17 08:37] VITALS: BP 114/94
[2023-11-17 09:08] LABS: ACID FAST SPEC PROCESSING Concentration (.)
[2023-11-17] MEDS ORDERED: CARVEDILOL 12.5 MG TAB PO SCH (10:00)
[2023-11-17] MEDS ORDERED: ASPIRIN, CHEWABLE 81 MG TAB PO SCH (10:00)
[2023-11-17] MEDS ORDERED: Losartan Potassium 50 MG TAB PO SCH (10:00)
[2023-11-17] MEDS ORDERED: TIOTROPIUM BROMIDE 18 MCG CAPSULES INHALER INH SCH (10:00)
[2023-11-17] MEDS ORDERED: VALSARTAN 80 MG TAB PO SCH (10:00)
[2023-11-17 11:47] VITALS: BP 127/73
[2023-11-17 16:00] VITALS: BP 134/50
[2023-11-17 20:00] VITALS: BP 149/79
[2023-11-17] MEDS ORDERED: TEMAZEPAM 15 MG CAP PO PRN (22:00)
[2023-11-17] MEDS ORDERED: ATORVASTATIN CALCIUM 40 MG TABLET PO SCH (22:00)
[2023-11-18] VITALS: BP 127/73
[2023-11-18 07:43] LABS: BASO % 0.3 % (0.0-1.0); EOS # 0.1 10*3/uL (0.0-0.4); EOS % 0.4 % (1.0-4.0); HEMATOCRIT 40.2 % (42.0-52.0); LYMPH # 1.5 10*3/uL (1.3-4.4); LYMPH % 10.2 % (27.0-41.0); MEAN CELL VOLUME 95.7 fl (80.0-94.0); MEAN CORPUSCULAR HGB CONC 32.3 g/dl (33.0-37.0); MEAN PLATELET VOLUME 9.6 fl (9.6-12.3); MONO # 0.8 10*3/uL (0.1-1.0); MONO % 5.3 % (3.0-9.0); NEUT # 12.5 10*3/uL (2.3-7.9); NEUT % 83.1 % (47.0-73.0); PLATELET COUNT AUTOMATED 343 10*3/uL (130-400); RED CELL DISTRI WIDTH 12.4 % (0-14.5)
[2023-11-18 08:00] VITALS: BP 117/89
[2023-11-18 08:13] LABS: BUN 17 mg/dl (9-23); CHLORIDE 99 mmol/L (98-107); POTASSIUM 4.1 mmol/L (3.4-5.1)
[2023-11-18 12:00] VITALS: BP 140/73
[2023-11-18 16:00] VITALS: BP 147/90
[2023-11-18] MEDS ORDERED: LEVOFLOXACIN750 M2 PO (16:56)
[2023-11-19 00:06] LABS: HISTOPLASMA MYCLIAL AB Negative (Neg:<1:2); HISTOPLASMA YEAST AB Negative (Neg:<1:2)
== END 2023-11-18 17:30 | disposition home or self-care (01) | DRG 871 ==
LOC: ED 10:46 → EDHOLD 14:54 → 4E 14:54 → EDHOLD 14:55 → 4E 11-13 12:22
PROVIDERS: Emergency Medicine; Internal Medicine; Internal Medicine Infectious Disease; Student in an Organized Health Care Education/Training Program; ADMIT Student in an Organized Health Care Education/Training Program; ATTEND Student in an Organized Health Care Education/Training Program
DX: A41.9 Sepsis, unspecified organism (principal); J18.9 Pneumonia, unspecified organism; J96.21 Acute and chronic respiratory failure with hypoxia; J44.1 Chronic obstructive pulmonary disease with (acute) exacerbation; E44.0 Moderate protein-calorie malnutrition; E87.0 Hyperosmolality and hypernatremia; J44.0 Chronic obstructive pulmonary disease with (acute) lower respiratory infection; I47.10 Supraventricular tachycardia, unspecified; D53.9 Nutritional anemia, unspecified; Z66 Do not resuscitate; Z20.822 Contact with and (suspected) exposure to COVID-19; E78.5 Hyperlipidemia, unspecified; R91.1 Solitary pulmonary nodule; K21.9 Gastro-esophageal reflux disease without esophagitis; M17.9 Osteoarthritis of knee, unspecified; I10 Essential (primary) hypertension; J98.4 Other disorders of lung; I49.3 Ventricular premature depolarization; Z95.810 Presence of automatic (implantable) cardiac defibrillator; Z51.5 Encounter for palliative care; Z85.118 Personal history of other malignant neoplasm of bronchus and lung; Z80.1 Family history of malignant neoplasm of trachea, bronchus and lung; Z82.5 Family history of asthma and other chronic lower respiratory diseases; Z79.82 Long term (current) use of aspirin; Z79.51 Long term (current) use of inhaled steroids; Z79.899 Other long term (current) drug therapy; Z68.26 Body mass index [BMI] 26.0-26.9, adult

== ENCOUNTER 2025-09-20 15:20 | Emergency (ER) | payer OTHER ==
[~2025-09-20 15:20] MED LIST changes: +ATORVASTATIN CA40 M1 PO; +MUCINEX ER600 MG PO; +MUCUS RELIEF600 MG PO; +XANAX1 MG PO
[2025-09-20] MEDS ORDERED: Albuterol Sulf/Ipratropium 3 ML VIAL NEB ONE (16:55)
[2025-09-20 17:05] LABS: BASO # 0.0 10*3/uL (0.0-0.1); BASO % 0.2 % (0.0-1.0); EOS # 0.0 10*3/uL (0.0-0.4); EOS % 0.1 % (1.0-4.0); MEAN CELL VOLUME 96.0 fl (80.0-94.0); MEAN CORPUSCULAR HGB 30.1 pg (27.0-31.0); MEAN PLATELET VOLUME 10.0 fl (9.6-12.3); MONO # 0.4 10*3/uL (0.1-1.0); MONO % 5.1 % (3.0-9.0); NEUT # 7.4 10*3/uL (2.3-7.9); NEUT % 88.6 % (47.0-73.0); NUCLEATED RED BLOOD CELL 0.0 % (0.0-0.0); NUCLEATED RED BLOOD CELL 0.0 10*3/uL (0.0-0.0); PLATELET COUNT AUTOMATED 199 10*3/uL (130-400); RED CELL DISTRI WIDTH 13.7 % (0-14.5)
[2025-09-20 17:16] LABS: ACT PARTIAL THROMBO TIME 26.5 SECONDS (20.0-32.1)
[2025-09-20 17:30] LABS: BUN 17 mg/dl (9-23)
[2025-09-20] MEDS ORDERED: JARDIANCE25 MG PO (18:15)
== END 2025-09-20 18:24 | disposition home or self-care (01) ==
LOC: ED 15:20
PROVIDERS: Internal Medicine
DX: J44.1 Chronic obstructive pulmonary disease with (acute) exacerbation (principal); K21.9 Gastro-esophageal reflux disease without esophagitis; Z87.891 Personal history of nicotine dependence